=== PATIENT | female | born 1965 | race Caucasian/White ===

== ENCOUNTER 2023-10-15 08:18 | Outpatient (OUT) | payer BC, OTHER, SELFPAY ==
[2023-10-15 09:06] LABS: Basophils Absolute Auto 0.1 10^3/uL (0.0-0.1); Basophils Percent Auto 0.8 % (0.2-2.0); Eosinophils Absolute Auto 0.1 10^3/uL (0.0-0.7); Eosinophils Percent Auto 1.3 % (0.9-7.0); Hematocrit 43.8 % (36.0-48.0); Hemoglobin 14.2 g/dL (12.0-16.0); Immature Granulocytes Abs Auto 0.01 10^3/uL (0.00-0.03); Immature Granulocytes Pct Auto 0.1 % (0.0-0.5); Lymphocytes Absolute Auto 2.9 10^3/uL (1.2-3.8); Lymphocytes Percent Auto 40.5 % (20.5-60.0); Mean Corpuscular HGB Conc 32.4 g/dL (29.9-35.2); Mean Corpuscular Hemoglobin 32.6 pg (26.7-34.0); Mean Corpuscular Volume 100.7 fL (81.0-99.0); Mean Platelet Volume 9.9 fL (9.5-13.5); Monocytes Absolute Auto 0.5 10^3/uL (0.3-0.8); Monocytes Percent Auto 6.9 % (1.7-12.0); Neutrophils Absolute Auto 3.6 10^3/uL (1.4-6.5); Neutrophils Percent Auto 50.4 % (43.0-75.0); Platelet Count 179 10^3/uL (150-450); Red Blood Count 4.35 10^6/uL (4.20-5.40); White Blood Count 7.1 10^3/uL (4.0-11.0)
[2023-10-15 10:02] LABS: Free T4 1.19 ng/dL (0.76-1.46)
[2023-10-15 10:07] LABS: Alanine Aminotransferase 80 U/L (14-59); Albumin Globulin Ratio 0.8; Albumin Level 3.4 g/dL (3.4-5.0); Alkaline Phosphatase 78 U/L (46-116); Anion Gap 10.3; Aspartate Amino Transferase 60 U/L (15-37); BUN Creatinine Ratio 11.8; Bilirubin Total 0.7 mg/dL (0.2-1.0); Calcium 8.6 mg/dL (8.5-10.1); Carbon Dioxide 31.8 mmol/L (21.0-32.0); Chloride 104 mmol/L (98-107); Chol HDL Ratio 2.7; Cholesterol 183 mg/dL (<=200); Estimated GFR (African America >60 (>=60); Estimated GFR (Non-African Ame >60 (>=60); Free T3 2.62 pg/mL (2.18-3.98); Globulin 4.1 g/dL; Glucose 95 mg/dL (74-106); HDL Cholesterol 68 mg/dL (40-60); Potassium 4.1 mmol/L (3.5-5.1); Sodium 142 mmol/L (136-145); Thyroid Stimulating Hormone 1.357 uIU/mL (0.358-3.740); Total Protein 7.5 g/dL (6.4-8.2); Triglycerides 55 mg/dL (<=150)
== END 2023-10-15 08:19 | disposition home or self-care (01) ==
LOC: LAB 08:18
PROVIDERS: Visit Provider Nurse Practitioner
DX: Z00.00 Encounter for general adult medical examination without abnormal findings (principal); E11.8 Type 2 diabetes mellitus with unspecified complications
CPT/HCPCS: 36415; 80053; 80061; 84439; 84443; 84481; 85025

== ENCOUNTER 2025-04-14 07:50 | Outpatient (OUT) | payer BC, SELFPAY ==
--- OUTSIDE RECORDS SUMMARY | 2025-04-14 07:52 | XMS_ITS | CCD ---
Author Organization [facility] Care Team Providers [employer] Name Role Phone REQUEST, NONE LISTED Admitting Unavaila ble REQUEST, NONE LISTED Attending Unavaila ble REQUEST, NONE LISTED Primary Care Unavaila ble REQUEST, NONE LISTED Consulting Unavaila ble REQUEST, NONE LISTED Admitting Unavaila ble REQUEST, NONE LISTED Attending Unavaila ble REQUEST, NONE LISTED Primary Care Unavaila ble REQUEST, NONE LISTED Consulting Unavaila ble REQUEST, NONE LISTED Admitting Unavaila ble REQUEST, NONE LISTED Attending Unavaila ble REQUEST, NONE LISTED Primary Care Unavaila ble REQUEST, NONE LISTED Consulting Unavaila ble Caremlla Porras Primary Care Physician Chiquita, DANIELLE Rivera Attending Unavailable Chiquita, DANIELLE Rivera Attending Unavailable Chiquita, FOUNTAIN DISPENSEREh Rivera Attending Unavailable Medications Current Medications Medication Drug Class(es) Dates Sig (Normalized) Sig (Original) 0.5 ml dulaglutide 1.5 mg/ml auto-injector (1 source) GLP-1 Receptor Agonist Start: 12-10-2023 inject 0.75 mg by subcutaneous injection every week Trulicity Pen 0.75 mg/0.5 mL subcutaneous solution 0.75 mg, SubCutaneous, qWeek, # 4 EA, Refills(s) 0, Pharmacy: [facility]/pharmacy #[id number], 158, cm, 10/08/23 11:16:00 EST, Height/Length Dosing, 93.7, kg, 10/08/23 11:27:00 EST, Weight Dosing Start Date: 12/10/23 Status: Ordered glipiZIDE er 2.5 mg 24 hr extended release oral tablet (1 source) Sulfonylurea Start: 09-20-2023 take 1 tablet by mouth once daily glipiZIDE 2.5 mg ER Tab 2.5 mg = 1 tab(s), Oral, Daily, # 90 tab(s), Refills(s) 1, Pharmacy: [facility] #[id number], 158, cm, 07/06/23 15:03:00 EST, Height/Length Dosing, 95, kg, 07/06/23 15:03:00 EST, Weight Dosing Start Date: 09/20/23 Status: Ordered metFORMIN hydrochloride 500 mg oral tablet (2 sources) Biguanide Start: 07-06-2023 take 1 tablet by mouth twice daily metformin 500 mg Tab 500 mg = 1 tab(s), Oral, BID, # 180 tab(s), Refills(s) 0, Pharmacy: [facility] #[id number], 158, cm, 07/06/23 15:03:00 EST, Height/Length Dosing, 95, kg, 07/06/23 15:03:00 EST, Weight Dosing Start Date: 07/06/23 Status: Ordered Problems Problem Classification Problem Date Documented Da te Episodic/Chronic Diabetes mellitus without complication (1 source) Type 2 diabetes mellitus 10-08-2023 Chronic Malaise and fatigue (1 source) Fatigue 10-08-2023 Episodic Other liver diseases (1 source) Elevated liver enzymes level 10-27-2023 Episodic Other skin disorders (1 source) Loss of hair 10-08-2023 Episodic Results Test Name Value Interpretation Reference Range Facility Family Medicine Office/Clini c Noteon 04-11-2025 Family Medicine Office/Clinic Note Family Medicine Office/Clinic Note [facility] Staff Onel is a 59 year old female presenting with Do you have any of the following symptoms? Foot Exam: she will not have her feet checked Eye Exam: last exam was in January 2025 Last A1C 04/01/24 ( 6.4) Statin: refills needed: glipizide Trulicity she has not taken in the last couple weeks, when she went to go pick it up they told her it was going to be 949 dollars Gets labs done at [facility] History of Present Illness pt presents today for diabetes follow up. due for annual labs Review of Systems PHQ Score Initial Depression Screen Score: 2 SCORE Physical Exam Vitals & Measurements T: 36.2 ???C(Temporal Artery) HR: 70(Peripheral) RR: 20 BP: 158/98 SpO2: 100% HT: 63 in HT: 159.6 cm WT: 206.573 lb WT: 93.7 kg BMI: 36.79 General: alert, no acute distress ENMT: oral mucosa moist, no pharyngeal erythema or exudate Cardiovascular: regular rate and rhythm, normal peripheral perfusion Respiratory: Lungs CTA, respirations non labored Extremities: no deformity, no trauma Neurological: oriented x 4, LOC appropriate for age, CN II-XII intact, motor strength equal & normal bilaterally, speech normal Assessment/Plan 1. Wellness examination (Z00.00: Encounter for general adult medical examination without abnormal findings) labs order will do at [facility]. cbc, cmp, lipd, hgba1c. TSH. c/o fatigue. will return in 1 week for BP check. may start BP med will order BP cuff. denies needs. RTC 6 months Ordered: Est Preventative 40 to 64 years [address] 2. Type 2 diabetes mellitus (E11.9: Type 2 diabetes mellitus without complications) pt has not been taking Trulicity because of the cost. will check HGBA1C to see what steps to take for meds. Ordered: dulaglutide, 0.75 mg, SubCutaneous, qWeek, # 4 EA, Refills(s) 3, Pharmacy: [facility]/pharmacy #[id number], 159.6, cm, 04/10/25 14:55:00 EDT, Height/Length Dosing, 93.7, kg, 04/10/25 14:55:00 EDT, Weight Dosing dulaglutide, 0.75 mg, SubCutaneous, qWeek, # 4 EA, Refills(s) 3, Pharmacy: [facility]/pharmacy #[id number], 158, cm, 10/08/23 11:16:00 EST, Height/Length Dosing, 93.7, kg, 10/08/23 11:27:00 EST, Weight Dosing dulaglutide, 0.75 mg, SubCutaneous, qWeek, # 4 EA, Refills(s) 3, Pharmacy: [facility]/pharmacy #[id number], 159.6, cm, 04/10/25 14:55:00 EDT, Height/Length Dosing, 93.7, kg, 04/10/25 14:55:00 EDT, Weight Dosing Est Preventative 40 to 64 years 50187 3. Former smoker (Z87.891: Personal history of nicotine dependence) continue not smoking Ordered: Est Preventative 40 to 64 years 32075 4. BMI 36.0-36.9,adult (Z68.36: Body mass index [BMI] 36.0-36.9, adult) BMI education Ordered: Est Preventative 40 to 64 years [address] 5. Class 2 severe obesity due to excess calories with serious comorbidity and body mass index (BMI) of 36.0 to 36.9 in adult (E66.812: Obesity, class 2) see above Ordered: Est Preventative 40 to 64 years [address]65 Fatigue (R53.83: Other fatigue) will check labs Ordered: dulaglutide, 0.75 mg, SubCutaneous, qWeek, # 4 EA, Refills(s) 3, Pharmacy: [facility]/pharmacy #[id number], 159.6, cm, 04/10/25 14:55:00 EDT, Height/Length Dosing, 93.7, kg, 04/10/25 14:55:00 EDT, Weight Dosing dulaglutide, 0.75 mg, SubCutaneous, qWeek, # 4 EA, Refills(s) 3, Pharmacy: [facility]/pharmacy #[id number], 158, cm, 10/08/23 11:16:00 EST, Height/Length Dosing, 93.7, kg, 10/08/23 11:27:00 EST, Weight Dosing dulaglutide, 0.75 mg, SubCutaneous, qWeek, # 4 EA, Refills(s) 3, Pharmacy: [facility]/pharmacy #[id number], 159.6, cm, 04/10/25 14:55:00 EDT, Height/Length Dosing, 93.7, kg, 04/10/25 14:55:00 EDT, Weight Dosing Hair thinning (L65.9: Nonscarring hair loss, unspecified) TSH ordered. Ordered: dulaglutide, 0.75 mg, SubCutaneous, qWeek, # 4 EA, Refills(s) 3, Pharmacy: [facility]/pharmacy #[id number], 159.6, cm, 04/10/25 14:55:00 EDT, Height/Length Dosing, 93.7, kg, 04/10/25 14:55:00 EDT, Weight Dosing dulaglutide, 0.75 mg, SubCutaneous, qWeek, # 4 EA, Refills(s) 3, Pharmacy: [facility]/pharmacy #[id number], 158, cm, 10/08/23 11:16:00 EST, Height/Length Dosing, 93.7, kg, 10/08/23 11:27:00 EST, Weight Dosing dulaglutide, 0.75 mg, SubCutaneous, qWeek, # 4 EA, Refills(s) 3, Pharmacy: [facility]/pharmacy #[id number], 159.6, cm, 04/10/25 14:55:00 EDT, Height/Length Dosing, 93.7, kg, 04/10/25 14:55:00 EDT, Weight Dosing Orders: glipiZIDE, See Instructions, TAKE 1 TABLET BY MOUTH EVERY DAY, # 90 tab(s), Refills(s) 3, Pharmacy: [facility] STORE [id number], 159.6, cm, 04/10/25 14:55:00 EDT, Height/Length Dosing, 93.7, kg, 04/10/25 14:55:00 EDT, Weight Dosing metformin, See Instructions, TAKE 1 TABLET BY MOUTH TWICE A DAY, # 180 tab(s), Refills(s) 0, Pharmacy: [facility] STORE [id number], 158, cm, 10/08/23 11:16:00 EST, Height/Length Dosing, 93.7, kg, 10/08/23 11:27:00 EST, Weight Dosing Follow-up No qualifying data available Problem List/Past Medical History Ongoing Elevated liver enzymes Fatigue Hair thinning Type 2 diabetes mellitus Wellness examination Historical No qualifying data Procedure/Surgical History delivery, Dilation and curettage of (more content not included)... Normal [facility] Comment on above: Result Comment: Elec tronically Signed By: Carmella Pickett\.br\Date and Time Signed: 04/11/25 07:37 EDT Ambulatory Visit Summaryon 0 04-10-2025 Ambulatory Visit Summary Ambulatory Visit Summary FILI ONEL :1965 Visit Date:04/10/2025 Ambulatory Visit Instructions Your Diagnosis Former smoker BMI 36.0-36.9,adult, Body mass index [BMI] 36.0-36.9, adult Class 2 severe obesity due to excess calories with serious comorbidity and body mass index (BMI) of 36.0 to 36.9 in adult BMI 37.0-37.9, adult Fatigue Hair thinning Morbid (severe) obesity due to excess calories Type 2 diabetes mellitus Your Care Team Attending Physician - Carmella Pickett Primary Care Physician - Carmella Pickett This Is Your Medications List dulaglutide (Trulicity Pen 0.75 mg/0.5 mL subcutaneous solution) glipiZIDE (glipiZIDE 2.5 mg ER Tab) glipiZIDE (glipiZIDE 2.5 mg ER Tab) metformin (metformin 500 mg Tab) Procedures Performed delivery, Dilation and curettage of uterus, Hernia repair, Hernia surgical mesh, Hysterectomy. Discharge Vitals Temperature (Temporal Artery) 36.2 ???C Heart Rate (Peripheral) 70 Respiratory Rate 20 Blood Pressure 162/84 Height 159.6 cm Height 63 in Weight 93.7 kg Weight 206.573 lb BMI 36.79 What to do next Scheduled Follow-Up Appointments Wednesday 3:00 PM EDT Where: [address] [address]- Medications What How Much When Why Instructions New dulaglutide (Trulicity Pen 0.75 mg/ 0.5 mL subcutaneous solution) 0.75 Milligram Subcutaneous Every week Type 2 diabetes mellitus Fatigue Hair thinning BMI 37.0-37.9, adult Refills: 3 Pickup at [facility]/pharmacy #[id number] Changed glipiZIDE (glipiZIDE 2.5 mg ER Tab) See instructions TAKE 1 TABLET BY MOUTH EVERY DAY Changed glipiZIDE (glipiZIDE 2.5 mg ER Tab) 1 Tablets By Mouth Every day Unchanged metformin (metformin 500 mg Tab) 1 Tablets By Mouth 2 times a day Pharmacy Information [facility]/pharmacy #[id number]: [address], [place] [phone] Allergies No Known Allergies Problems Ongoing - Any problem that you are currently receiving treatment for. Elevated liver enzymes Fatigue Hair thinning Type 2 diabetes mellitus Patient Survey You may receive a survey via text or e-mail asking about your office visit. Please share your experience with us by completing your survey. We appreciate your feedback and thank you for choosing us for your care. Patient Portal You may access all of your results and other medical record information on our secure patient portal. If you are not signed up for this yet, please contact [employer] at [phone] to get signed up today. Language Information Language assistance services are available as needed. Normal [facility] CHEMISTRYOrdered By: SYSTEM SYSTEM on 12-10-2023 ALT No additional P-5'-P [Catalytic activity/Vol] 30 [iU]/d Normal 6 - 46 Int._Unit/L Remisol Chem AST [Catalytic activity/Vol] 27 [iU]/d Normal 5 - 43 Int._Unit/L Remisol Chem GLYCOHEMOGLOBIN A1Con 2022 ADA RECOMMENDATION SEE BELOW Normal [facility] Comment on above: Result Comment: ADA RECOMMENDED LIMIT 4.0 - 6.0 ADA THERAPEUTIC TARGET < 7.0 ACTION SUGGESTED > 7.0 Performed By: #### D ATA1C #### [facility] [address] [place] [address] Dr. Brett Cantrell Glucose [Mass/Vol] 177 mg/dL Normal [facility] Comment on above: Performed By: #### D ATA1C #### [facility] [address] [place] [address] Dr. Brett Cantrell HbA1c (Bld) [Mass fraction] 7.8 % Critically high 4.5-6.[address] [facility] Comment on above: Performed By: #### D ATA1C #### [facility] [address] [place] [address] Dr. Brett Cantrell GLYCOHEMOGLOBIN A1Con 2022 ADA RECOMMENDATION SEE BELOW Normal [facility] Comment on above: Result Comment: ADA RECOMMENDED LIMIT 4.0 - 6.0 ADA THERAPEUTIC TARGET < 7.0 ACTION SUGGESTED > 7.0 Performed By: #### D ATA1C #### [facility] [address] [place] [address] Dr. Brett Cantrell Glucose [Mass/Vol] 174 mg/dL Normal [facility] Comment on above: Performed By: #### D ATA1C #### [facility] [address] [place] [address] Dr. Brett Cantrell HbA1c (Bld) [Mass fraction] 7.7 % Critically high 4.5-6.[address] [facility] Comment on above: Performed By: #### D ATA1C #### [facility] [address] [place] [address] Dr. Brett Cantrell CBC AUTO DIFFon 06-13-2022 BASO # 0.1 103/ul Normal 0.0-0.[address] [facility] Comment on above: Performed By: #### D ATCBC #### [facility] [address] [place] [address] Dr. Brett Cantrell Basophils/100 WBC (Bld) 0.8 % Normal 0.2-2.0 [facility] Comment on above: Performed By: #### D ATCBC #### [facility] [address] [place] [address] Dr. Brett Cantrell EO # 0.2 103/ul Normal 0.0-0.7 [facility] Comment on above: Performed By: #### D ATCBC #### [facility] [address] [place] [address] Dr. Brett Cantrell Eosinophils/100 WBC (Bld) 2.3 % Normal 0.9-7.0 [facility] Comment on above: Performed By: #### D ATCBC #### [facility] [address] [place] [address] Dr. Brett Cantrell Erythrocyte distribution width (RBC) [Ratio] 12.2 % Normal 11.0-15.0 [facility] Comment on above: Performed By: #### D ATCBC #### [facility] [address] [place] [address] Dr. Brett Cantrell Hematocrit (Bld) [Volume fraction] 45.5 % Normal 36.0-48.0 [facility] Comment on above: Performed By: #### D ATCBC #### [facility] [address] [place] [address] Dr. Brett Cantrell Hemoglobin (Bld) [Mass/Vol] 15.1 g/dL Normal 12.0-16.0 [facility] Comment on above: Performed By: #### D ATCBC #### [facility] [address] [place] [address] Dr. Brett Cantrell IG # 0.01 10e3/ul Normal 0.00-0.03 [facility] Comment on above: Performed By: #### D ATCBC #### [facility] [address] [address] [address] Brett Cantrell IG % 0.2 % Normal 0.0-0.5 [facility] Comment on above: Performed By: #### D ATCBC #### [facility] [address] [place] [address] Dr. Brett Cantrell LYMPH # 2.8 103/ul Normal 1.2-3.8 [facility] Comment on above: Performed By: #### D ATCBC #### [facility] [address] [place] [address] Dr. Brett Cantrell Lymphocytes/100 WBC (Bld) 42.8 % Normal 20.5-60.0 [facility] Comment on above: Performed By: #### D ATCBC #### [facility] [address] [place] [address] Dr. Brett Cantrell MCH (RBC) [Entitic mass] 33.3 pg Normal 26.7-34.[address] [facility] Comment on above: Performed By: #### D ATCBC #### [facility] [address] [place] [address] Dr. Brett Cantrell MCHC (RBC) [Mass/Vol] 33.2 g/dL Normal 29.9-35.[address] [facility] Comment on above: Performed By: #### D ATCBC #### [facility] [address] [place] [address] Dr. Brett Cantrell MCV (RBC) [Entitic vol] 100.2 fL Critically high 81.0-99.0 [facility] Comment on above: Performed By: #### D ATCBC #### [facility] [address] [place] [address] Dr. Brett Cantrell MONO # 0.4 103/ul Normal 0.3-0.8 [facility] Comment on above: Performed By: #### D ATCBC #### [facility] [address] [place] [address] Dr. Brett Cantrell Monocytes/100 WBC (Bld) 5.6 % Normal 1.7-12.0 [facility] Comment on above: Performed By: #### D ATCBC #### [facility] [address] [place] [address] Dr. Brett Cantrell NEUT # 3.2 103/ul Normal 1.4-6.[address] [facility] Comment on above: Performed By: #### D ATCBC #### [facility] [address] [place] [address] Dr. Brett Cantrell Neutrophils/100 WBC (Bld) 48.3 % Normal 43.0-75.[address] [facility] Comment on above: Performed By: #### D ATCBC #### [facility] [address] [place] [address] Dr. Brett Cantrell Platelet mean volume (Bld) [Entitic vol] 10.0 fL Normal 9.5-13.[address] [facility] Comment on above: Performed By: #### D ATCBC #### [facility] [address] [place] [address] Dr. Brett Cantrell PLT 185 103/ul Normal 150-[address] [facility] Comment on above: Performed By: #### D ATCBC #### [facility] [address] [place] [address] Dr. Brett Cantrell RBC 4.54 106/ul Normal 4.20-5.[address] [facility] Comment on above: Performed By: #### D ATCBC #### [facility] [address] [place] [address] Dr. Brett Cantrell WBC 6.6 103/ul Normal 4.0-11.[address] [facility] Comment on above: Performed By: #### D ATCBC #### [facility] [address] [place] [address] Dr. Brett Cantrell RADHA - TSHon 06-13-2022 TSH 0.998 uIU/mL Normal 0.358-3.740 [facility] Comment on above: Performed By: #### D ATTSH, DATBMP #### [facility] [address] [place] [address] Dr. Brett Cantrell TSH RANGE SEE BELOW Normal [facility] Comment on above: Result Comment: <0.3 4 UIU/ml HYPERTHYROID 0.34-5.60 UIU/ml EUTHYROID >5.60 UIU/ml HYPOTHYROID Performed By: #### D LINDY DATBMP #### [facility] [address] [address] [address] Brett Cantrell RADHA- BMP WITH LIPIDon 2021 Anion gap [Moles/Vol] 8.1 mmol/L Normal [facility] Comment on above: Performed By: #### D LINDY DATBMP #### [facility] [address] [address] [address] Brett Canrtell Calcium [Mass/Vol] 8.5 mg/dL Normal 8.5-10.1 [facility] Comment on above: Performed By: #### D LINDY DATBMP #### [facility] [address] [place] [address] Dr. Brett Cantrell Chloride [Moles/Vol] 104 mmol/L Normal 98-[address] [facility] Comment on above: Performed By: #### D LINDY DATBMP #### [facility] [address] [place] [address] Dr. Brett Cantrell Cholesterol [Mass/Vol] 180 mg/dL Normal <=200 [facility] Comment on above: Performed By: #### D LINDY DATBMP #### [facility] [address] [place] [address] Dr. Brett Cantrell Cholesterol in HDL [Mass/Vol] 68 mg/dL Critically high 40-[address] [facility] Comment on above: Performed By: #### D LINDY DATBMP #### [facility] [address] [place] [address] Dr. Brett Cantrell Cholesterol in LDL [Mass/Vol] 98.4 mg/dL Normal [facility] Comment on above: Performed By: #### D LINDY DATBMP #### [facility] [address] [place] [address] Dr. Brett Cantrell CO2 [Moles/Vol] 29.8 mmol/L Normal 21.0-32.0 [facility] Comment on above: Performed By: #### D LINDY DATBMP #### [facility] [address] [address] [address] Brett Cantrell Creatinine [Mass/Vol] 0.61 mg/dL Normal 0.55-1.[address] [facility] Comment on above: Performed By: #### D ATTSH, DATBMP #### [facility] [address] [address] [address] Brett Cantrell EGFR-AF SCOTTISH >60 Normal >=60 [facility] Comment on above: Performed By: #### D ATTSH, DATBMP #### [facility] [address] [address] [address] Brett Cantrell EGFR-NON AF SCOTTISH >60 Normal >=[address] [facility] Comment on above: Performed By: #### D ATTSH, DATBMP #### [facility] [address] [address] [address] Brett Cantrell Glucose [Mass/Vol] 206 mg/dL Critically high 74-106 T [facility] Comment on above: Performed By: #### D ATTSH, DATBMP #### [facility] [address] [address] [address] Brett Cantrell HDL NORMAL > or = 60 mg/dl - LOW CARDIOVASCULAR RISK <40 mg/dl - HIGH CARDIOVASCULAR RISK Normal [facility] Comment on above: Performed By: #### D ATTSH, DATBMP #### [facility] [address] [address] [address] Brett Cantrell LDL CALC NORMAL SEE BELOW Normal [facility] Comment on above: Result Comment: <100 mg/dl OPTIMAL 100 - 129 mg/dl NEAR OR ABOVE OPTIMAL 130 - 159 mg/dl BORDERLINE HIGH 160 - 189 mg/dl HIGH >190 mg/dl VERY HIGH Performed By: #### D ATTSH, DATBMP #### [facility] [address] [address] [address] Brett Cantrell Potassium [Moles/Vol] 3.9 mmol/L Normal 3.5-5.[address] [facility] Comment on above: Performed By: #### D ATTSH, DATBMP #### [facility] [address] [address] [address] Brett Cantrell Sodium [Moles/Vol] 138 mmol/L Normal 136-[address] [facility] Comment on above: Performed By: #### D ATTRAMILA DATBMP #### [facility] [address] [address] [address] Brett Cantrell Triglyceride [Mass/Vol] 68 mg/dL Normal <=[address] [facility] Comment on above: Performed By: #### D LINDY DATBMP #### [facility] [address] [place] [address] Dr. Brett Cantrell Urea nitrogen [Mass/Vol] 11.0 mg/dL Normal 7.0-18.[address] [facility] Comment on above: Performed By: #### D LINDY DATBMP #### [facility] [address] [address] [address] Brett Cantrell Urea nitrogen/Creatinine [Mass ratio] 18.0 mg/mg Normal [facility] Comment on above: Performed By: #### D LINDY DATBMP #### [facility] [address] [address] [address] Brett Cantrell VLDL CALC 13.6 mg/dL Normal [facility] Comment on above: Performed By: #### D LINDY DATBMP #### [facility] [address] [place] [address] Dr. Brett Cantrell GLYCOHEMOGLOBIN A1Con 2021 ADA RECOMMENDATION SEE BELOW Normal [facility] Comment on above: Result Comment: ADA RECOMMENDED LIMIT 4.0 - 6.0 ADA THERAPEUTIC TARGET < 7.0 ACTION SUGGESTED > 7.0 Performed By: #### D ATA1C #### [facility] [address] [address] [address] Brett Cantrell Glucose [Mass/Vol] 243 mg/dL Normal [facility] Comment on above: Performed By: #### D ATA1C #### [facility] [address] [place] [address] Dr. Brett Cantrell HbA1c (Bld) [Mass fraction] 10.1 % Critically high 4.5-6.[address] [facility] Comment on above: Performed By: #### D ATA1C #### [facility] [address] [address] [address] Brett Cantrell Encounters Encounter Date Encounter Type Care Provider Facility Start: 04-17-2025 ambulatory [employer]ER Carmella L Chiquita Facil ity:[facility] Start: 04-10-2025 End: 04-10-2025 ambulatory [employer]ER Carmella L Chiquita Facility:[facility] [place] [facility] Start: 04-28-2024 End: 04-28-2024 ambulatory F[employer] DISPENSER Carmella L Chiquita Facility:[facility] [place] [facility] Start: 12-10-2023 End: 12-10-2023 Lab Drop off Carmella Spearsab [facility] Start: 01-01-2023 End: 01-02-2023 ambulatory NONE LISTED REQUEST Facility: Start: 10-06-2022 End: 10-07-[address] NONE LISTED REQUEST Facility: Start: 06-13-2022 End: 06-14-[address] NONE LISTED REQUEST Facility: Procedures Date Procedure Procedure Detail Performing Clinician Deliveries by armani becker (john) [employer] Comment on above: 6 C-sections. Dilation and curetta ge of uterus [facility] Hernia repair [facility] Hernia surgical mesh (physical object) [facility] Comment on above: Neede repaired. Hysterectomy [facility] Immunizations Immunization Date Immunization Notes Care Provider Fa cili 06-28-2022 SARS-CoV-2 (COVID-19 ) [id number] [facility] 05-13-2022 influenza virus vaccine, unspecified formulation Carmella Sand 9 [facility] 01-06-2022 SARS-CoV-2 mRNA (fmfmdcvzlpm-cdtq-qdcsd se) vaccine Carmella Chiquita [facility] 07-05-2021 SARS-CoV-2 (COVID-19 ) mRNA BNT-162b2 vax Carmella Chiquita [facility] 05-10-2021 influenza virus vaccine, unspecified formulation Carmella Chiquita [facility] 01-01-2021 SARS-CoV-2 (COVID-19 ) mRNA BNT-162b2 vax Carmella Chiquita [facility] 12-13-2020 SARS-CoV-2 (COVID-19 ) mRNA BNT-162b2 vax Carmella Chiquita [facility] Payers Date Payer Category Payer Unknown [id number] 1965 Unknown [id number] 2.16.8 [id number] 1965 Unknown [id number] 2.16.8 [id number] 1965 Unknown [id number] 2.16.8 [id number] 1960 Self-pay Unknown [id number] 2.16.84 [id number] Unknown [id number] 2.16.84 [id number] Unknown [id number] 2.16.84 [id number] Social History Date Type Detail Facility Start: 10-08-2023 Tobacco smoking status Ex-smoker (fi nding) [facility] Tobacco smoking status Never [facility] Sex Assigned At Female [facility] Evaluation + Plan note 04-19-2024 Note Date & Type Note Facility 12-10-2023 Evaluation + Plan note Diagnostic Tests PendingAcute Hepatitis A B C Panel 12/10/23 [facility] Hospital course Narrative Note Date & Type Note Facility Hospital course Narrative No data available for this section [facility] Hospital Discharge instructions Note Date & Type Note Facility Hospital Discharge instructions No data available for this section [facility] Progress note Note Date & Type Note Facility Progress note No data available for this section [facility] Summary Purpose Family History No Family History Records Found No data available for this section No Family History Records Found Advance Directives No Advanced Directives Records FoundNo Advanced Directives Records Found Additional Source Comments INFORMATION SOURCE (unrecogn ized section and content) DATE CREATED AUTHOR 01/02/2023 [facility] DATE CREATED AUTHOR AUTHOR'S ORGANIZ ATION 04/12/2025 [facility] Patient Care team informatio n (unrecognized section and content) Personnel Name: Carmella Pickett Address: Address: [address] [place] [address]- FOR RECORDS PERTAINING TO PATIENTS WHO ARE OR HAVE BEEN ENROLLED IN A CHEMICAL DEPENDENCY/SUBSTANCEABUSE PROGRAM, SOME INFORMATION MAY BE OMITTED. This clinical summary was aggregated from multiple sources. Caution should be exercised in using it in the provision of clinical care. This summary normalizes information from multiple sources, and as a consequence, information in this document may materially change the coding, format and clinical context of patient data. In addition, data may be omitted in some cases. CLINICAL DECISIONS SHOULD BE BASED ON THE PRIMARY CLINICAL RECORDS. [facility] provides no warranty or guarantee of the accuracy or completeness of information in this document.
[2025-04-14 08:13] LABS: Hematocrit 41.5 % (36.0-48.0); Hemoglobin 14.0 g/dL (12.0-16.0); Immature Granulocytes Abs Auto 0.01 10^3/uL (0.00-0.03); Immature Granulocytes Pct Auto 0.2 % (0.0-0.5); Lymphocytes Absolute Auto 2.0 10^3/uL (1.2-3.8); Mean Corpuscular HGB Conc 33.7 g/dL (29.9-35.2); Mean Corpuscular Hemoglobin 33.7 pg (26.7-34.0); Mean Corpuscular Volume 99.8 fL (81.0-99.0); Platelet Count 149 10^3/uL (150-450); Red Blood Count 4.16 10^6/uL (4.20-5.40); White Blood Count 5.1 10^3/uL (4.0-11.0)
[2025-04-14 08:49] LABS: Alanine Aminotransferase 50 U/L (14-59); Albumin Globulin Ratio 0.9; Albumin Level 3.5 g/dL (3.4-5.0); Alkaline Phosphatase 79 U/L (46-116); Anion Gap 10.9; Aspartate Amino Transferase 39 U/L (15-37); Blood Urea Nitrogen 7.0 mg/dL (7.0-18.0); Calcium 8.8 mg/dL (8.5-10.1); Carbon Dioxide 27.4 mmol/L (21.0-32.0); Chloride 106 mmol/L (98-107); Cholesterol 182 mg/dL (<=200); Estimated GFR (African America >60 (>=60 mL/min/1.73m^2); Estimated GFR (Non-African Ame >60 (>=60 mL/min/1.73m^2); Globulin 3.9 g/dL; Glucose 124 mg/dL (74-106); HDL Cholesterol 69 mg/dL (40-60); Potassium 4.3 mmol/L (3.5-5.1); Sodium 140 mmol/L (136-145); Thyroid Stimulating Hormone 1.209 uIU/mL (0.358-3.740); Total Protein 7.4 g/dL (6.4-8.2); Triglycerides 53 mg/dL (<=150); VLDL CHOLESTEROL 10.6 mg/dL
== END 2025-04-14 07:51 | disposition home or self-care (01) ==
PROVIDERS: PCP Nurse Practitioner; Visit Provider Nurse Practitioner
DX: Z00.00 Encounter for general adult medical examination without abnormal findings (principal); E11.8 Type 2 diabetes mellitus with unspecified complications
CPT/HCPCS: 36415; 80053; 80061; 83036; 84443; 85025

== ENCOUNTER 2025-07-17 14:37 | Outpatient (OUT) | payer BC, SELFPAY | END 2025-07-17 14:38 | disposition home or self-care (01) | LOC: LAB 14:38 | PROVIDERS: PCP Nurse Practitioner; Visit Provider Nurse Practitioner | DX: I10 Essential (primary) hypertension (principal); E11.9 Type 2 diabetes mellitus without complications | CPT/HCPCS: 36415; 83036 ==